=== PATIENT | male | born 1970 | race Caucasian/White ===

== ENCOUNTER 2021-02-16 04:33 | Emergency (ER) | payer SELFPAY ==
[~2021-02-16] VITALS: Ht 165.1 cm; Wt 85.1 kg
[2021-02-16] MEDS ORDERED: LIDOCAINE-MPF 1%, 5ML ONE ×2 (04:44→05:41)
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
[2021-02-16] MEDS ORDERED: LIDOCAINE 1%-EPI 1:100K, 20ML SQ ONE (05:00)
--- NOTE | 2021-02-16 05:00 | NUR ---
jenise surtured by dr mcgraw
[2021-02-16 05:27] LABS: BASOPHILS % (AUTO) 1 % (0-1); EOSINOPHILS % (AUTO) 2 % (1-7); LYMPHOCYTES % (AUTO) 18 % (22-44); MEAN CORPUSCULAR HEMOGLOBIN 34.3 pg (27.5-34.5); MEAN CORPUSCULAR HGB CONC 34.9 g/dL (33.2-36.2); MEAN PLATELET VOLUME 8.6 fL (7.4-10.4); MONOCYTES % (AUTO) 8 % (2-9); NEUTROPHILS % (AUTO) 71 % (42-75); PLATELET COUNT 207 x10^3/uL (130-400); RED BLOOD COUNT 4.53 x10^6/uL (4.38-5.82); RED CELL DISTRIBUTION WIDTH 13.7 % (9.4-14.8)
--- NOTE | 2021-02-16 05:28 | NUR ---
back from [place] pt in nad
[2021-02-16] MEDS ORDERED: DIPH,PERTUSS(ACELL),TET VAC/PF 0.5 ML IM-VACC ONE (05:30)
[2021-02-16 05:36] LABS: MD NO
--- NOTE | 2021-02-16 05:39 | NUR ---
esau sister [phone]
--- NOTE | 2021-02-16 05:43 | NUR ---
pt has old sutures to right index finger, dr pierce at bed side removing sutures
--- NOTE | 2021-02-16 06:01 | NUR ---
report to leela pt moved to room 18
--- NOTE | 2021-02-16 06:51 | NUR ---
REPORT FROM SHAYNE
--- NOTE | 2021-02-16 07:11 | NUR ---
CLEANED OFF PATIENTS DRIED BLOOD. PT ALERT. VSS
[2021-02-16 08:28] VITALS: BP 145/98
--- NOTE | 2021-02-16 08:30 | NUR ---
FAMILY TO COME CO TEACHER SOON FOR DC
--- NOTE | 2021-02-16 09:21 | NUR ---
FAMILY HERE FOR DC
== END 2021-02-16 09:31 | disposition home or self-care (01) ==
LOC: ED 08:31
DX: S01.81XA Laceration without foreign body of other part of head, initial encounter (principal); S09.90XA Unspecified injury of head, initial encounter; F10.129 Alcohol abuse with intoxication, unspecified; M54.2 Cervicalgia; R00.0 Tachycardia, unspecified; I10 Essential (primary) hypertension; W18.30XA Fall on same level, unspecified, initial encounter; Y93.89 Activity, other specified; Y92.410 Unspecified street and highway as the place of occurrence of the external cause; Y99.8 Other external cause status; Y90.0 Blood alcohol level of less than 20 mg/100 ml
CPT/HCPCS: 12005; 12035; 36415; 64450; 70450; 72125; 80320; 85025; 86850; 86900; 96372; 99285; G0480